=== PATIENT | female | born 1990 | race Caucasian/White ===

== ENCOUNTER 2016-08-22 13:07 | Emergency (ER) | payer OTHER ==
[2016-08-22 13:11] VITALS: BP 125/81; PULSE 80; RESP 18; TEMP 97; O2SAT 100
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
--- NOTE | 2016-08-22 15:10 | RAD ---
HISTORY: right chest, rib and back pain COMPARISON: No prior. TECHNIQUE: Chest PA and lateral FINDINGS: LUNGS: Prominent lung markings. No evidence of focal infiltrate or consolidation in the lungs. PLEURA: No significant pleural effusion identified. No pneumothorax apparent. CARDIOVASCULAR: Normal. OSSEOUS STRUCTURES: No significant abnormalities. VISUALIZED UPPER ABDOMEN: Normal. OTHER FINDINGS: None. IMPRESSION: Prominent lung markings. No evidence of pneumonia or mass lesion.
== END 2016-08-22 14:04 | disposition home or self-care (01) ==
LOC: C.ER 13:07
DX: S20.211A Contusion of right front wall of thorax, initial encounter (principal); X58.XXXA Exposure to other specified factors, initial encounter

== ENCOUNTER 2018-01-11 17:09 | Emergency (ER) | payer MEDICAID, OTHER ==
[2018-01-11 17:37] VITALS: BP 115/77; PULSE 95; RESP 18; TEMP 98.1; O2SAT 100
--- NOTE | 2018-01-11 18:18 | C.PDOC ---
History Of Present Illness 27 year old female presents to ED for evaluation of right ankle pain s/o trip for the last 3 days. Patient states she twisted her right ankle. Also notes persistent bruising and swelling. Denies trauma, numbness, tingling, fever, nausea, vomiting, and other associated symptoms. R ANKLE INJURY 3 DAYS AGO. TRIPPED AND TWISTED CO PERSIST BRUISING, SWELL. DENIES OTHER ASSOC TRAUMA EXAM NAD NONTOXIC EXT RLE +SWELL W BRUISING R SIDE ANKLE W GEN TEND NO DEFORM. NO FOOT, TIBFIB TEND SKIN INTACT NO ERYTHEMA Time Seen by Provider: 01/11/18 18:02 Chief Complaint (Nursing): Lower Extremity Problem/Injury History Per: Patient History/Exam Limitations: no limitations Onset/Duration Of Symptoms: Days Current Symptoms Are (Timing): Still Present - Knee Description Of Injury: Twisted Past Medical History Reviewed: Historical Data, Nursing Documentation, Vital Signs Vital Signs: Last Vital Signs Temp 98.1 F 01/11/18 17:34 Pulse 95 H 01/11/18 17:34 Resp 18 01/11/18 17:34 BP 115/77 01/11/18 17:34 Pulse Ox 100 01/11/18 18:21 - Medical History PMH: Anemia Family History: States: Unknown Family Hx - Social History Hx Alcohol Use: Yes Hx Substance Use: No - Immunization History Hx Tetanus Toxoid Vaccination: No Hx Influenza Vaccination: No Hx Pneumococcal Vaccination: No Review Of Systems Except As Marked, All Systems Reviewed And Found Negative. Constitutional: Negative for: Fever, Chills Gastrointestinal: Negative for: Nausea, Vomiting Musculoskeletal: Positive for: Foot Pain (right ankle pain ) Neurological: Negative for: Weakness, Numbness, Incoordination Physical Exam - Physical Exam Appears: Non-toxic, No Acute Distress Skin: Normal Color, Warm, Dry Head: Atraumatic, Normacephalic Extremity: Tenderness (generalized tenderness ), Capillary Refill (less than 2 seconds), No Deformity, Swelling (of the Right lower extremity w/ bruising ), Other (No tibia or fibula tenderness. Skin intact. No erythema. ) Pulses: Left Femoral: Normal, Right Femoral: Normal Neurological/Psych: Oriented x3, Normal Speech, Normal Motor, Normal Sensation Gait: Steady ED Course And Treatment O2 Sat by Pulse Oximetry: 100 (RA) Pulse Ox Interpretation: Normal - Other Rad R ANKLE X-Ray: Interpreted by Me (NEG), Read By Radiologist Interpretation: FINDINGS: BONES: No acute displaced fracture. JOINTS: No dislocation. SOFT TISSUES: Extensive soft tissue swelling. No evidence of radiopaque foreign body. OTHER FINDINGS: None. IMPRESSION: Extensive soft tissue swelling. No acute displaced fracture, dislocation, or significant joint effusion identified. If symptoms persist or if there is clinical concern , x-ray follow-up in 7-10 days should be considered. Medical Decision Making Medical Decision Making: Plan: --Right ankle X-ray Disposition Counseled Patient/Family Regarding: Studies Performed, Diagnosis, Need For Followup - Disposition Referrals: [facility] [Outside] [facility] [Outside] [facility] [Outside] Disposition: HOME/ ROUTINE Disposition Time: 18:21 Condition: IMPROVED Instructions: Ankle Sprain (DC) Forms: [facility] (Montenegrin), Work Excuse - Clinical Impression Clinical Impression: Ankle sprain - Scribe Statement The provider has reviewed the documentation as recorded by the Scribe (Dorothea Chavis) Provider Attestation: All medical record entries made by the Scribe were at my direction and personally dictated by me. I have reviewed the chart and agree that the record accurately reflects my personal performance of the history, physical exam, medical decision making, and the department course for this patient. I have also personally directed, reviewed, and agree with the discharge instructions and disposition. Orthopedic Care Application Of:: Posterior Short Leg Splint - Ambulation Aids Ambulation Aids: Adult Crutches
--- NOTE | 2018-01-11 18:34 | RAD ---
PROCEDURE: Right Ankle Radiographs. HISTORY: trauma COMPARISON: None available FINDINGS: BONES: No acute displaced fracture. JOINTS: No dislocation. SOFT TISSUES: Extensive soft tissue swelling. No evidence of radiopaque foreign body. OTHER FINDINGS: None. IMPRESSION: Extensive soft tissue swelling. No acute displaced fracture, dislocation, or significant joint effusion identified. If symptoms persist or if there is clinical concern, x-ray follow-up in 7-10 days should be considered.
== END 2018-01-11 18:43 | disposition home or self-care (01) ==
LOC: C.ER 17:09
DX: S93.401A Sprain of unspecified ligament of right ankle, initial encounter (principal); X50.1XXA Overexertion from prolonged static or awkward postures, initial encounter